=== PATIENT | female | born 1950 | race Caucasian/White ===

== ENCOUNTER 2019-11-06 17:13 | Emergency (ER) | payer MEDICARE, OTHER ==
[~2019-11-06] VITALS: Ht 162.6 cm; Wt 51.3 kg
[2019-11-06] MEDS ORDERED: TDAP [DIPH/PERTUSSIS/TET] 0.5 ML VIAL IM ONE ×2 (17:27→17:30)
--- NOTE | 2019-11-06 17:33 | NUR ---
patient bibra from independent living, skin tear on the left forearm after drinking alcohol. On room air, breathing evenly and unlabored. connected to the monitor and pulse ox. kept comfortable, will continue to monitor accordingly.
[2019-11-06 17:42] LABS: BASOPHILS % (AUTO) 0.5 % (0.0-2.0); HEMATOCRIT 46 % (33-45); HEMOGLOBIN 15.3 g/dL (11.5-14.8); LYMPHOCYTES # (AUTO) 3.4 /CMM (0.8-4.8); LYMPHOCYTES % (AUTO) 54.3 % (20.0-44.0); MEAN CORPUSCULAR HGB CONC 33 g/dl (31.0-36.0); MEAN CORPUSCULAR VOLUME 91 fL (82-100); MONOCYTES # (AUTO) 0.6 /CMM (0.1-1.30); NEUTROPHILS # (AUTO) 2.1 /CMM (1.8-8.9); NEUTROPHILS % (AUTO) 34.2 % (43.0-81.0); PLATELET COUNT (AUTO) 284 /CMM (150-450); RED BLOOD CELL COUNT(AUTO) 5.09 MIL/uL (4.0-5.2); WHITE BLOOD COUNT (AUTO) 6.2 K/uL (4.3-11.0)
--- NOTE | 2019-11-06 17:46 | NUR ---
PT TO CT VIA [facility].
[2019-11-06 17:50] LABS: CALCIUM, SERUM 8.1 mg/dL (8.5-10.1); CREATININE 0.7 mg/dL (0.6-1.3)
[2019-11-06] MEDS ORDERED: HALOPERIDOL LACTATE INJ 5 MG/ML VIAL ONE (18:29)
[2019-11-06] MEDS ORDERED: HALOPERIDOL LACTATE INJ 5 MG/ML VIAL IM ONE (18:30)
[2019-11-06] MEDS ORDERED: LORAZEPAM INJ 2 MG/ML VIAL ONE (18:47)
[2019-11-06] MEDS ORDERED: LORAZEPAM INJ 2 MG/ML VIAL IV ONE ×2 (19:00)
--- NOTE | 2019-11-06 19:22 | NUR ---
report given to hubert LE for rocky
--- NOTE | 2019-11-06 19:40 | NUR ---
TOOK OVER PT CARE. PT RESTING COMFORTABLY. VSS. RR EVEN AND UNLABORED SAT AT 98%. PROVIDED WITH BLANKET.
--- NOTE | 2019-11-06 23:42 | NUR ---
PT RESTING COMFORTABLY.
--- NOTE | 2019-11-07 02:12 | NUR ---
PT ASLEEP. VSSNathaly SITTER PROVIDED PT WITH WATER.
--- NOTE | 2019-11-07 05:02 | NUR ---
SPOKE WITH VIRGILIO FROM [facility], CURRENTLY NO AMBULANCES AVAILABLE
--- NOTE | 2019-11-07 05:08 | NUR ---
Attempted to call [facility] for report. No response.
--- NOTE | 2019-11-07 05:08 | NUR ---
CALLED [facility], ETA [phone]
--- NOTE | 2019-11-07 07:32 | NUR ---
patient in bed asleep, hooked to monitor, will continue to monitor accordingly, kept safe and comfortable.
--- NOTE | 2019-11-07 08:43 | NUR ---
offered breakfast, patient refused, provided w water instead
[2019-11-07 10:54] VITALS: BP 121/77
--- NOTE | 2019-11-07 10:54 | NUR ---
REPORT GIVEN TO EMT FOR PT TRANSFER BACK TO [facility].
== END 2019-11-07 10:55 ==
LOC: ER 17:17
DX: S51.812A Laceration without foreign body of left forearm, initial encounter (principal); F10.129 Alcohol abuse with intoxication, unspecified; R42 Dizziness and giddiness; R53.1 Weakness; G47.00 Insomnia, unspecified; D50.9 Iron deficiency anemia, unspecified; Y90.8 Blood alcohol level of 240 mg/100 ml or more; W18.39XA Other fall on same level, initial encounter; Y93.89 Activity, other specified; Y92.89 Other specified places as the place of occurrence of the external cause; Y99.8 Other external cause status
CPT/HCPCS: 36415; 70450; 72125; 80048; 80307; 85025; 90471; 90715; 96372; 96374; 99285; J1630; J2060; G0480

== ENCOUNTER 2020-08-30 22:07 | Emergency (ER) | payer MEDICARE, OTHER ==
[~2020-08-30] VITALS: Ht 162.6 cm; Wt 51.3 kg
--- NOTE | 2020-08-30 22:10 | NUR ---
PT BIBRA C/O GEN WEAKNESS. PT AAOX4 BREATHING EVENLY AND UNLABORED. PT DENIES ANY PAIN AND DOES NOT WANT TO "BE IN THE HOSPITAL". PER EMS, PT HAS HX OF FALLS AND DRINKS AT HER CARE FACILITY. AT BEDSIDE. PT ATTACHED TO MONITOR AND POX. PT GIVEN BLANKET AND CALL LIGHT WITHIN REACH
--- NOTE | 2020-08-30 22:38 | NUR ---
LAB AT BEDSIDE
--- NOTE | 2020-08-30 22:41 | NUR ---
PT REFUSING TO GIVE URINE SAMPLE. AWARE
--- NOTE | 2020-08-30 22:45 | NUR ---
PT REFUSING XRAYS AND ASKING FOR AMA FORM. AWARE. PT SIGNED AMA FORM
--- NOTE | 2020-08-30 22:50 | NUR ---
CALLED [facility], SPOKE TO CAREGIVER LOIDA AND INFORMED HER THAT PT AMA'D AND WILL BE GOING BACK VIA AMBULANCE
--- NOTE | 2020-08-30 22:58 | NUR ---
CALLED [facility] FOR BLS LITIGATION COORDINATOR. CREW ON SCENE
--- NOTE | 2020-08-30 23:01 | NUR ---
GAVE REPORT TO EMS
[2020-08-30 23:06] VITALS: BP 103/56
[2020-08-30 23:11] LABS: BASOPHILS % (AUTO) 0.2 % (0.0-2.0); EOSINOPHILS % (AUTO) 0.2 % (0.0-6.0); HEMATOCRIT 42 % (33-45); HEMOGLOBIN 13.9 g/dL (11.5-14.8); LYMPHOCYTES % (AUTO) 22.7 % (20.0-44.0); MEAN CORPUSCULAR HGB CONC 33 g/dl (31.0-36.0); MEAN CORPUSCULAR VOLUME 93 fL (82-100); MONOCYTES # (AUTO) 0.8 /CMM (0.1-1.30); MONOCYTES % (AUTO) 9.1 % (2.0-12.0); NEUTROPHILS % (AUTO) 67.8 % (43.0-81.0); PLATELET COUNT (AUTO) 315 /CMM (150-450); RED BLOOD CELL COUNT(AUTO) 4.51 MIL/uL (4.0-5.2); WHITE BLOOD COUNT (AUTO) 8.8 K/uL (4.3-11.0)
[2020-08-30 23:33] LABS: CALCIUM, SERUM 7.9 mg/dL (8.5-10.1); CARBON DIOXIDE 24 mmol/L (21-32); CHLORIDE 103 mmol/L (98-107); CREATININE 0.8 mg/dL (0.6-1.3); GLUCOSE 107 mg/dL (74-106); POTASSIUM 3.9 mmol/L (3.5-5.1); SODIUM SERUM 137 mmol/L (136-145); UREA NITROGEN, BLOOD 8 mg/dL (7-18)
[2020-08-30 23:46] LABS: ALANINE AMINOTRANSFERASE 40 U/L (12-78); ALBUMIN 3.5 g/dL (3.4-5.0); ALCOHOL, BLOOD 281 mg/dL (0-0); ALKALINE PHOSPHATASE 129 U/L (46-116); ASPARTATE AMINOTRANSFERASE 66 U/L (15-37); B-TYPE NATRIURETIC PEPTIDE 58 PG/ML (0-125); BILIRUBIN,TOTAL 0.3 mg/dL (0.2-1.0); LIPASE 116 U/L (73-393)
== END 2020-08-30 23:01 | disposition left against medical advice (07) ==
LOC: ER 22:09
DX: R53.1 Weakness (principal); F10.10 Alcohol abuse, uncomplicated; G47.00 Insomnia, unspecified; D50.9 Iron deficiency anemia, unspecified; Y90.9 Presence of alcohol in blood, level not specified
CPT/HCPCS: 36415; 80053-TC; 83690-TC; 83880; 84484-TC; 85025-TC; G0480

== ENCOUNTER 2021-06-07 19:51 | Emergency (ER) | payer OTHER ==
[~2021-06-07] VITALS: Ht 160 cm; Wt 45.4 kg
[2021-06-07 21:02] LABS: BILIRUBIN,URINE NEGATIVE (NEGATIVE); COLOR,URINE YELLOW (YELLOW); LEUKOCYTE ESTERASE ,URINE TRACE (NEGATIVE); NITRITE, URINE NEGATIVE (NEGATIVE); PH,URINE 5.5 (5.0-8.0); PROTEIN,URINE 30 mg/dl (NEGATIVE); UGLUCOSE NEGATIVE (NEGATIVE); UROBILINOGEN,URINE 0.2 EU/dL (0.2)
[2021-06-07 21:11] LABS: BACTERIA,URINE 1+ /HPF (None Seen); RBC,URINE 21-50 /HPF (0-2)
[2021-06-07 21:30] LABS: BASOPHILS # (AUTO) 0.1 K/uL (0.0-0.2); BASOPHILS % (AUTO) 0.8 % (0.0-2.0); EOSINOPHILS % (AUTO) 0.2 % (0.0-6.0); HEMATOCRIT 38 % (33-45); HEMOGLOBIN 12.5 g/dL (11.5-14.8); LYMPHOCYTES # (AUTO) 2.6 K/uL (0.8-4.8); LYMPHOCYTES % (AUTO) 37.6 % (20.0-44.0); MEAN CORPUSCULAR HGB CONC 33 g/dl (31.0-36.0); MEAN CORPUSCULAR VOLUME 81 fL (82-100); MONOCYTES # (AUTO) 0.7 K/uL (0.1-1.30); NEUTROPHILS # (AUTO) 3.5 K/uL (1.8-8.9); NEUTROPHILS % (AUTO) 51.4 % (43.0-81.0); PLATELET COUNT (AUTO) 320 K/uL (150-450); RED BLOOD CELL COUNT(AUTO) 4.71 MIL/uL (4.0-5.2); WHITE BLOOD COUNT (AUTO) 6.9 K/uL (4.3-11.0)
[2021-06-07 21:44] LABS: ALBUMIN 4.1 g/dL (3.4-5.0); BILIRUBIN,DIRECT 0.1 mg/dL (0.0-0.2); BILIRUBIN,TOTAL 0.4 mg/dL (0.2-1.0); CALCIUM, SERUM 8.3 mg/dL (8.5-10.1); CREATININE 0.7 mg/dL (0.6-1.3); POTASSIUM 4.4 mmol/L (3.5-5.1)
[2021-06-07] MEDS ORDERED: LORAZEPAM 1 MG TABLET ONE (21:46)
--- NOTE | 2021-06-07 21:57 | NUR ---
PT TAKEN TO AND RETURNED FROM CT VIA [facility]
[2021-06-07] MEDS ORDERED: LORAZEPAM 1 MG TABLET PO ONE (22:00)
[2021-06-07] MEDS ORDERED: HALOPERIDOL LACTATE INJ 5 MG/ML VIAL ONE (22:53)
[2021-06-07] MEDS ORDERED: HALOPERIDOL LACTATE INJ 5 MG/ML VIAL IM ONE (23:00)
--- NOTE | 2021-06-08 02:11 | NUR ---
PT SLEEPING COMOFORTABLY. BREATHING EVEN AND UNLABORED ALL V/S STABLE. ALL PT NEEDS MET.
--- NOTE | 2021-06-08 02:13 | NUR ---
REPORT GIVEN TO ARIADNA AT THE FACILITY
--- NOTE | 2021-06-08 04:05 | NUR ---
PT A, OX3 ,AMBULATORY WITH STEADY GAITS TO THE BATHROOM. PO INTAKE TOLERATED WELL. REPORTED FEELING WELL AND WANTED TO LEAVE. DENIED SI/HI. MADE AWARE, CLEAR FOR D/C.
--- NOTE | 2021-06-08 04:17 | NUR ---
[facility] ETA:30MIN
--- NOTE | 2021-06-08 04:48 | NUR ---
[facility] @ BEDSIDE FOR PULL OVER MACHINE OPERATOR.
[2021-06-08 04:50] VITALS: BP 131/81
--- NOTE | 2021-06-08 05:00 | NUR ---
PT PICKED UP BY [facility] BACK TO [facility]. WRITTEN AND VERBAL DISCHARGE INSTRUCTIONS PROVIDED TO PATIENT AND SHE VERBALIZED UNDERSTANDING OF INSTRUCTIONS.ALL V/S STABLE AT TIME OF DISCHARGE AND ALL PT BELONGINGS DISCHARGED WITH PATIENT. PT IN STABLE CONDITION AT TIME OF DICHARGE.
[2021-06-09] MEDS ORDERED: MELA5TAB PO (15:11)
[2021-06-09] MEDS ORDERED: IBUP-1953 PO (15:11)
[2021-06-09] MEDS ORDERED: OLAN2.5T3 PO (15:11)
[2021-06-09] MEDS ORDERED: LORA-259 PO (15:11)
[2021-06-09] MEDS ORDERED: ACET-868 PO (15:11)
[2021-06-09] MEDS ORDERED: THIA100T68 PO (15:11)
[2021-06-09] MEDS ORDERED: ESCI5TAB PO (15:11)
[2021-06-09] MEDS ORDERED: MAGN400O6 PO (15:11)
[2021-06-09] MEDS ORDERED: ZOLP5TAB8 PO (15:11)
[2021-06-09] MEDS ORDERED: MULT-24 PO (15:11)
[2021-06-09] MEDS ORDERED: MAG30ORA PO (15:11)
[2021-06-09] MEDS ORDERED: CALC500T13 PO (15:11)
[2021-06-09] MEDS ORDERED: FOLI0.4T6 PO (15:11)
== END 2021-06-08 05:22 ==
LOC: ER 19:54
DX: F10.229 Alcohol dependence with intoxication, unspecified (principal); G31.84 Mild cognitive impairment of uncertain or unknown etiology; R26.81 Unsteadiness on feet; R53.1 Weakness; G47.09 Other insomnia; D50.9 Iron deficiency anemia, unspecified; Z87.898 Personal history of other specified conditions; Y90.8 Blood alcohol level of 240 mg/100 ml or more
CPT/HCPCS: 36415; 70450; 80048; 80076; 80307; 80320; 81001; 82140; 85025; 87086; 96372; 99285; J1630; G0480

== ENCOUNTER 2021-06-09 14:09 | Emergency (ER) | payer OTHER ==
[~2021-06-09] VITALS: Ht 160 cm; Wt 45.4 kg
--- NOTE | 2021-06-09 14:48 | NUR ---
bibra60 frm [facility]F c/o "generalized weakness" seen 2 days ago for etoh
[2021-06-09] MEDS ORDERED: MAG30ORA PO (15:11)
[2021-06-09] MEDS ORDERED: MULT-24 PO (15:11)
[2021-06-09] MEDS ORDERED: CALC500T13 PO (15:11)
[2021-06-09] MEDS ORDERED: THIA100T68 PO (15:11)
[2021-06-09] MEDS ORDERED: ESCI5TAB PO (15:11)
[2021-06-09] MEDS ORDERED: FOLI0.4T6 PO (15:11)
[2021-06-09] MEDS ORDERED: MAGN400O6 PO (15:11)
[2021-06-09] MEDS ORDERED: LORA-259 PO (15:11)
[2021-06-09] MEDS ORDERED: ACET-868 PO (15:11)
[2021-06-09] MEDS ORDERED: ZOLP5TAB8 PO (15:11)
[2021-06-09] MEDS ORDERED: MELA5TAB PO (15:11)
[2021-06-09] MEDS ORDERED: OLAN2.5T3 PO (15:11)
[2021-06-09] MEDS ORDERED: IBUP-1953 PO (15:11)
[2021-06-09] MEDS ORDERED: IV NS 0.9% 1,000 ML BAG IV ONE (15:30)
[2021-06-09 15:41] LABS: BILIRUBIN,URINE NEGATIVE (NEGATIVE); COLOR,URINE YELLOW (YELLOW); LEUKOCYTE ESTERASE ,URINE NEGATIVE (NEGATIVE); NITRITE, URINE NEGATIVE (NEGATIVE); PROTEIN,URINE 30 mg/dl (NEGATIVE); UGLUCOSE NEGATIVE (NEGATIVE); UROBILINOGEN,URINE 0.2 EU/dL (0.2)
--- NOTE | 2021-06-09 15:52 | NUR ---
[facility]. BLOOD COLLECTED AND SENT TO LAB
[2021-06-09 16:00] LABS: BACTERIA,URINE None seen /HPF (None Seen); SQUAMOUS EPITHELIAL CELL,UR Few /HPF (None Seen)
[2021-06-09 16:09] LABS: BASOPHILS % (AUTO) 0.3 % (0.0-2.0); EOSINOPHILS % (AUTO) 0.6 % (0.0-6.0); HEMATOCRIT 38 % (33-45); HEMOGLOBIN 12.1 g/dL (11.5-14.8); LYMPHOCYTES # (AUTO) 2.1 K/uL (0.8-4.8); LYMPHOCYTES % (AUTO) 31.1 % (20.0-44.0); MEAN CORPUSCULAR HGB CONC 32 g/dl (31.0-36.0); MEAN CORPUSCULAR VOLUME 82 fL (82-100); MONOCYTES # (AUTO) 0.6 K/uL (0.1-1.30); MONOCYTES % (AUTO) 8.8 % (2.0-12.0); NEUTROPHILS % (AUTO) 59.2 % (43.0-81.0); PLATELET COUNT (AUTO) 263 K/uL (150-450); RED BLOOD CELL COUNT(AUTO) 4.62 MIL/uL (4.0-5.2); WHITE BLOOD COUNT (AUTO) 6.8 K/uL (4.3-11.0)
[2021-06-09 16:52] LABS: CALCIUM, SERUM 8.6 mg/dL (8.5-10.1); CARBON DIOXIDE 23 mmol/L (21-32); CHLORIDE 99 mmol/L (98-107); CREATININE 0.5 mg/dL (0.6-1.3); GLUCOSE 97 mg/dL (74-106); POTASSIUM 5.3 mmol/L (3.5-5.1); SODIUM SERUM 134 mmol/L (136-145); UREA NITROGEN, BLOOD 10 mg/dL (7-18)
[2021-06-09 16:57] LABS: ALANINE AMINOTRANSFERASE 49 U/L (12-78); ALBUMIN 3.9 g/dL (3.4-5.0); ALCOHOL, BLOOD 106 mg/dL (0-0); ALKALINE PHOSPHATASE 73 U/L (46-116); ASPARTATE AMINOTRANSFERASE 95 U/L (15-37); BILIRUBIN,DIRECT 0.1 mg/dL (0.0-0.2); BILIRUBIN,TOTAL 0.9 mg/dL (0.2-1.0); TOTAL PROTEIN, SERUM 7.8 g/dL (6.4-8.2)
[2021-06-09 17:05] LABS: THYROID STIMULATING HORMONE 1.205 uIU/mL (0.358-3.74)
--- NOTE | 2021-06-09 17:17 | NUR ---
[facility] CALLED FOR TRANSPORT ETA 30 MINS PER BURAK.
[2021-06-09] MEDS ORDERED: LORAZEPAM 1 MG TABLET ONE (17:28)
[2021-06-09] MEDS ORDERED: LORAZEPAM 1 MG TABLET PO ONE (17:30)
--- NOTE | 2021-06-09 18:45 | NUR ---
REPORT GIVEN TO AMBULANCE AND TRANSPORTED PT BACK TO HER FACILTY ([facility])
[2021-06-09 18:47] VITALS: BP 127/81
== END 2021-06-09 18:50 ==
LOC: ER 14:40
DX: F10.229 Alcohol dependence with intoxication, unspecified (principal); R53.1 Weakness; G31.84 Mild cognitive impairment of uncertain or unknown etiology; R26.81 Unsteadiness on feet; G47.09 Other insomnia; D50.9 Iron deficiency anemia, unspecified; Z87.898 Personal history of other specified conditions; Z79.1 Long term (current) use of non-steroidal anti-inflammatories (NSAID); Z79.818 Long term (current) use of other agents affecting estrogen receptors and estrogen levels; Z79.82 Long term (current) use of aspirin; Z79.52 Long term (current) use of systemic steroids; Z79.84 Long term (current) use of oral hypoglycemic drugs; Z79.810 Long term (current) use of selective estrogen receptor modulators (SERMs); Y90.5 Blood alcohol level of 100-119 mg/100 ml
CPT/HCPCS: 36415; 70450; 71045; 80048; 80076; 80307; 80320; 81001; 84443; 84484; 85025; 93005; 96360; 99285; J7030; G0480

== ENCOUNTER 2022-10-06 14:37 | Emergency (ER) | payer OTHER ==
[~2022-10-06] VITALS: Ht 167.6 cm; Wt 78.0 kg
[~2022-10-06 14:37] MED LIST: ACET-868 PO; CALC500T13 PO; ESCI5TAB PO; FOLI0.4T6 PO; IBUP-1953 PO; LORA-259 PO; MAG30ORA PO; MAGN400O6 PO; MELA5TAB PO; MULT-24 PO; OLAN2.5T3 PO; THIA100T68 PO; ZOLP5TAB8 PO
--- NOTE | 2022-10-06 14:51 | NUR ---
[id number] FROM [facility] FOR ETOH. STAFF NOTICED THE PT DRINKING "ALOT OF WINE" THE PAST 2 DAYS. THE PATIENT IS ALERT AND ORIENTED X3. DENIES PAIN. IN ROOM AIR AND DENIES SOB. RESPIRATION REGULAR AND UNLABORED. THE PATIENT IS ATTACHED TO THE MONITOR. WARM BLANKET PROVIDED FOR COMFORT. WILL CONTINUE TO MONITOR THE PATIENT.
[2022-10-06] MEDS ORDERED: IV NS 0.9% 1,000 ML BAG IV ONE (15:00)
--- NOTE | 2022-10-06 15:07 | NUR ---
IV LINE IS ESTABLISHED, BLOOD SPECIMEN COLLECTED AND SENT TO THE LAB. THE LINE IS SALINE LOCKED.
--- NOTE | 2022-10-06 15:20 | NUR ---
URINE COLLECTED AND SENT TO THE LAB
[2022-10-06 15:26] LABS: BASOPHILS % (AUTO) 0.2 % (0.0-2.0); EOSINOPHILS % (AUTO) 0.1 % (0.0-6.0); HEMATOCRIT 41 % (33-45); HEMOGLOBIN 13.3 g/dL (11.5-14.8); LYMPHOCYTES # (AUTO) 3.4 K/uL (0.8-4.8); LYMPHOCYTES % (AUTO) 31.4 % (20.0-44.0); MEAN CORPUSCULAR HGB CONC 33 g/dl (31.0-36.0); MEAN CORPUSCULAR VOLUME 91 fL (82-100); MONOCYTES # (AUTO) 0.9 K/uL (0.1-1.30); MONOCYTES % (AUTO) 8.1 % (2.0-12.0); NEUTROPHILS # (AUTO) 6.4 K/uL (1.8-8.9); NEUTROPHILS % (AUTO) 60.2 % (43.0-81.0); PLATELET COUNT (AUTO) 271 K/uL (150-450); RED BLOOD CELL COUNT(AUTO) 4.47 MIL/uL (4.0-5.2); WHITE BLOOD COUNT (AUTO) 10.7 K/uL (4.3-11.0)
[2022-10-06 15:51] LABS: CALCIUM, SERUM 8.3 mg/dL (8.5-10.1); CREATININE 0.8 mg/dL (0.6-1.3); POTASSIUM 3.9 mmol/L (3.5-5.1)
[2022-10-06 15:56] LABS: ALBUMIN 3.8 g/dL (3.4-5.0); BILIRUBIN,DIRECT 0.1 mg/dL (0.0-0.2); BILIRUBIN,TOTAL 0.3 mg/dL (0.2-1.0); TOTAL PROTEIN, SERUM 7.5 g/dL (6.4-8.2)
[2022-10-06 17:02] LABS: BILIRUBIN,URINE NEGATIVE (NEGATIVE); COLOR,URINE YELLOW (YELLOW); LEUKOCYTE ESTERASE ,URINE 1+ (NEGATIVE); NITRITE, URINE NEGATIVE (NEGATIVE); PH,URINE 5.5 (5.0-8.0); PROTEIN,URINE TRACE mg/dl (NEGATIVE); UGLUCOSE NEGATIVE (NEGATIVE); UROBILINOGEN,URINE 0.2 EU/dL (0.2)
[2022-10-06 17:33] LABS: BACTERIA,URINE 2+ /HPF (None Seen); MUCUS,URINE Few /LPF (None Seen); RBC,URINE 51-80 /HPF (0-2)
[2022-10-06] MEDS ORDERED: LORAZEPAM INJ 2 MG/ML VIAL ONE (17:51)
[2022-10-06] MEDS ORDERED: LORAZEPAM INJ 2 MG/ML VIAL IV ONE (18:00)
--- NOTE | 2022-10-06 22:19 | NUR ---
RAHEEM W/ TIFF AT [facility] , REPORT GIVEN AND NOTIFIED THAT PT IS RETURNING TO FACILITY
--- NOTE | 2022-10-06 22:24 | NUR ---
[facility] ETA 20 MINS
--- NOTE | 2022-10-06 22:47 | NUR ---
[facility] AT BEDSIDE FOR TRANSPORTATION
[2022-10-06 22:53] VITALS: BP 141/68
== END 2022-10-06 22:54 ==
LOC: ER 14:54
DX: F10.129 Alcohol abuse with intoxication, unspecified (principal); D50.9 Iron deficiency anemia, unspecified; F29 Unspecified psychosis not due to a substance or known physiological condition; Z79.899 Other long term (current) drug therapy; Y90.8 Blood alcohol level of 240 mg/100 ml or more
CPT/HCPCS: 99283; 96374; 96361; 85025; 80048; 87086; 80076; 81001; 36415; 80320; J2060; J7030; G0480

== ENCOUNTER 2023-12-24 12:24 | Inpatient (IN) | payer OTHER ==
[~2023-12-24] VITALS: Ht 137.2 cm; Wt 54.4 kg
[2023-12-24 13:18] LABS: BASOPHILS # (AUTO) 0.1 K/uL (0.0-0.2); BASOPHILS % (AUTO) 1.1 % (0.0-2.0); CALCIUM, SERUM 9.3 mg/dL (8.5-10.1); CARBON DIOXIDE 28 mmol/L (21-32); CHLORIDE 102 mmol/L (98-107); CREATININE 0.9 mg/dL (0.6-1.3); EOSINOPHILS # (AUTO) 0.1 K/uL (0.0-0.7); EOSINOPHILS % (AUTO) 0.9 % (0.0-6.0); GLUCOSE 107 mg/dL (74-106); HEMATOCRIT 39 % (33-45); HEMOGLOBIN 12.9 g/dL (11.5-14.8); LYMPHOCYTES # (AUTO) 1.6 K/uL (0.8-4.8); LYMPHOCYTES % (AUTO) 19.1 % (20.0-44.0); MEAN CORPUSCULAR HEMOGLOBIN 29 PG (26.0-33.0); MEAN CORPUSCULAR HGB CONC 33 g/dl (31.0-36.0); MEAN CORPUSCULAR VOLUME 87 fL (82-100); MONOCYTES # (AUTO) 0.6 K/uL (0.1-1.30); MONOCYTES % (AUTO) 7.2 % (2.0-12.0); NEUTROPHILS # (AUTO) 5.9 K/uL (1.8-8.9); NEUTROPHILS % (AUTO) 71.7 % (43.0-81.0); PLATELET COUNT (AUTO) 204 K/uL (150-450); POTASSIUM 3.8 mmol/L (3.5-5.1); RED BLOOD CELL COUNT(AUTO) 4.46 MIL/uL (4.0-5.2); RED CELL DISTRIBUTION WIDTH 16.5 % (11.5-15.0); SODIUM SERUM 138 mmol/L (136-145); UREA NITROGEN, BLOOD 17 mg/dL (7-18); WHITE BLOOD COUNT (AUTO) 8.2 K/uL (4.3-11.0)
[2023-12-24 13:31] LABS: ALANINE AMINOTRANSFERASE 12 U/L (12-78); ALBUMIN 3.5 g/dL (3.4-5.0); ALKALINE PHOSPHATASE 55 U/L (46-116); ASPARTATE AMINOTRANSFERASE 13 U/L (15-37); BILIRUBIN,DIRECT 0.1 mg/dL (0.0-0.2); BILIRUBIN,TOTAL 0.3 mg/dL (0.2-1.0); NT-PRO BNP 92 pg/mL (0-125); TOTAL PROTEIN, SERUM 6.9 g/dL (6.4-8.2)
[2023-12-24] MEDS ORDERED: IBUP-1957 PO (14:32)
[2023-12-24] MEDS ORDERED: MULT1TAB70 PO (14:32)
[2023-12-24] MEDS ORDERED: MIRT7.5T10 PO (14:32)
[2023-12-24] MEDS ORDERED: LORA2TAB95 PO ×2 (14:32)
[2023-12-24] MEDS ORDERED: ZOLP10TA2 PO (14:32)
[2023-12-24] MEDS ORDERED: IBUPROFEN 800 MG TABLET PO PRN (15:30)
[2023-12-24] MEDS ORDERED: ACETAMINOPHEN 325 MG TABLET PO PRN (15:30)
[2023-12-24] MEDS ORDERED: LORAZEPAM 1 MG TABLET PO PRN (15:30)
[2023-12-24] MEDS ORDERED: ONDANSETRON HCL/PF 4 MG/2 ML VIAL IVP PRN (15:30)
[2023-12-24 15:35] LABS: APPEARANCE,URINE CLEAR (CLEAR); BILIRUBIN,URINE NEGATIVE (NEGATIVE); BLOOD, URINE 1+ Ery/uL (NEGATIVE); COLOR,URINE YELLOW (YELLOW); KETONES,URINE NEGATIVE (NEGATIVE); LEUKOCYTE ESTERASE ,URINE NEGATIVE (NEGATIVE); NITRITE, URINE NEGATIVE (NEGATIVE); PROTEIN,URINE NEGATIVE (NEGATIVE); UGLUCOSE NEGATIVE (NEGATIVE); UROBILINOGEN,URINE 0.2 EU/dL (0.2)
[2023-12-24 15:38] LABS: AMPHETAMINE, URINE NEGATIVE (NEGATIVE); BARBITURATE, URINE NEGATIVE (NEGATIVE); BENZODIAZEPINE, URINE NEGATIVE (NEGATIVE); COCCAINE, URINE NEGATIVE (NEGATIVE); OPIATE, URINE NEGATIVE (NEGATIVE); PHENCYCLIDINE SCREEN,URINE NEGATIVE (NEGATIVE)
[2023-12-24 15:39] LABS: CANNABINOID, URINE POSITIVE (NEGATIVE)
[2023-12-24 15:42] LABS: ADD URINE CULTURE NO; BACTERIA,URINE None seen /HPF (None Seen); SQUAMOUS EPITHELIAL CELL,UR 0-2 /HPF (None Seen); WBC,URINE 0-2 /HPF (0-3)
[2023-12-24 16:00] VITALS: BP 130/74; TEMP 97.7; O2SAT 97
[2023-12-24] MEDS: LORAZEPAM 1 MG TABLET PO SCH (17:06)
[2023-12-24 20:00] VITALS: BP 136/77; TEMP 97.3; O2SAT 95
[2023-12-24 20:06] VITALS: BP 149/82; TEMP 97.9; O2SAT 95
[2023-12-24] MEDS: IBUPROFEN 400 MG TABLET PO PRN (20:09)
[2023-12-24 21:00] VITALS: BP_SYST 128; BP_SYST 137; BP_SYST 143; BP_DIAS 79; BP_DIAS 83; O2SAT 96
[2023-12-24] MEDS: IV NS 0.9% 1,000 ML IV PRN (21:02)
[2023-12-24] MEDS: ZOLPIDEM TARTRATE 10 MG TABLET PO PRN (21:47)
[2023-12-25] VITALS: BP 120/69; TEMP 97.5; O2SAT 96
[2023-12-25 00:01] VITALS: BP 120/69; TEMP 97.5; O2SAT 96
[2023-12-25] MEDS: LORAZEPAM 1 MG TABLET PO PRN (02:40)
[2023-12-25 04:00] VITALS: BP 120/70; TEMP 97.9; O2SAT 96
[2023-12-25 06:18] LABS: BASOPHILS % (AUTO) 0.4 % (0.0-2.0); EOSINOPHILS # (AUTO) 0.1 K/uL (0.0-0.7); EOSINOPHILS % (AUTO) 2.1 % (0.0-6.0); HEMATOCRIT 38 % (33-45); HEMOGLOBIN 12.6 g/dL (11.5-14.8); LYMPHOCYTES % (AUTO) 36.5 % (20.0-44.0); MEAN CORPUSCULAR HEMOGLOBIN 29 PG (26.0-33.0); MEAN CORPUSCULAR HGB CONC 34 g/dl (31.0-36.0); MEAN CORPUSCULAR VOLUME 87 fL (82-100); MONOCYTES # (AUTO) 0.6 K/uL (0.1-1.30); MONOCYTES % (AUTO) 10.4 % (2.0-12.0); NEUTROPHILS # (AUTO) 2.8 K/uL (1.8-8.9); NEUTROPHILS % (AUTO) 50.6 % (43.0-81.0); PLATELET COUNT (AUTO) 226 K/uL (150-450); RED BLOOD CELL COUNT(AUTO) 4.35 MIL/uL (4.0-5.2); RED CELL DISTRIBUTION WIDTH 16.5 % (11.5-15.0); WHITE BLOOD COUNT (AUTO) 5.6 K/uL (4.3-11.0)
[2023-12-25 06:39] LABS: CALCIUM, SERUM 8.8 mg/dL (8.5-10.1); CARBON DIOXIDE 25 mmol/L (21-32); CHLORIDE 107 mmol/L (98-107); CREATININE 0.8 mg/dL (0.6-1.3); GLUCOSE 80 mg/dL (74-106); PHOSPHORUS 3.2 mg/dL (2.5-4.9); POTASSIUM 3.8 mmol/L (3.5-5.1); SODIUM SERUM 140 mmol/L (136-145); UREA NITROGEN, BLOOD 12 mg/dL (7-18)
[2023-12-25 08:00] VITALS: BP 123/68; TEMP 99; O2SAT 98
[2023-12-25] MEDS: FOLIC ACID 1 MG TABLET PO SCH (08:25)
[2023-12-25] MEDS: MIRTAZAPINE 15 MG TABLET PO SCH (08:25)
[2023-12-25] MEDS: MULTIVIT W/MINERALS 1 TAB TABLET PO SCH (08:26)
[2023-12-25] MEDS: THIAMINE HCL 100 MG TABLET PO SCH (08:26)
== END 2023-12-25 13:25 | DRG 640 ==
LOC: ER 12:32 → TELE 15:32
PROVIDERS: ADMIT Nurse Practitioner Acute Care; ATTEND Nurse Practitioner Acute Care
DX: E86.0 Dehydration (principal); G92.8 Other toxic encephalopathy; F32.A Depression, unspecified; F41.9 Anxiety disorder, unspecified; R26.81 Unsteadiness on feet; G31.84 Mild cognitive impairment of uncertain or unknown etiology; F29 Unspecified psychosis not due to a substance or known physiological condition; G47.00 Insomnia, unspecified; D50.9 Iron deficiency anemia, unspecified; Z79.899 Other long term (current) drug therapy; F19.10 Other psychoactive substance abuse, uncomplicated; F10.10 Alcohol abuse, uncomplicated; F12.10 Cannabis abuse, uncomplicated; Y90.9 Presence of alcohol in blood, level not specified
CPT/HCPCS: 36415; 71045-TC; 80048-TC; 80076-TC; 81001; 83735-TC; 83880; 84100-TC; 84484-TC; 85025-TC; 97110-TC; 97116-TC; 97530-TC; A4223; G0378; J7030